=== PATIENT | male | born 1970 | race African-American/Black ===

== ENCOUNTER 2019-11-20 13:46 | Emergency (ER) | payer SELFPAY ==
[~2019-11-20] VITALS: Ht 165.1 cm; Wt 81.6 kg
[2019-11-20 14:28] VITALS: BP 167/98
[2019-11-20] MEDS ORDERED: IBUP-1007 PO (14:49)
--- NOTE | 2019-11-20 14:49 | PHYS DOC ---
Past Medical History Past Medical History: Hypertension Past Surgical History: No Surgical History Alcohol Use: Occasionally Drug Use: Marijuana Adult General Chief Complaint Chief Complaint: SHOULDER INJURY HPI HPI Patient is a 49 year old male] who presents with [left shoulder pain. Patient reports over the last week, he has had some increasing pain in his left shoulder. Reports he was a lot of boxes while at work, after working for the past few days he has had some increased discomfort. States he has not tried taking medications for this, states that he has additional discomfort when he tries to lay on that arm. Patient denies any fever. Denies any chest pain. Reports pain worse when he moves arm. Denies any recent falls. Denies any prior shoulder issues.] Review of Systems Review of Systems Constitutional: Denies fever or chills [] Respiratory: Denies cough or shortness of breath [] Cardiovascular: No additional information not addressed in HPI [] GI: Denies abdominal pain, nausea, vomiting, bloody stools or diarrhea [] : Denies dysuria or hematuria [] Musculoskeletal: Denies back pain complains of pain to left shoulder.[] Integument: Denies rash or skin lesions [] Neurologic: Denies headache, focal weakness or sensory changes [] Endocrine: Denies polyuria or polydipsia [] All other systems were reviewed and found to be within normal limits, except as documented in this note. Allergies Allergies Allergies Coded Allergies Type Severity Reaction Last Updated Verified No Known Drug Allergies 11/20/19 No Physical Exam Physical Exam Constitutional: Well developed, well nourished, no acute distress, non-toxic appearance. [] Neck: Normal range of motion, no tenderness, supple, no stridor. [] Cardiovascular:Heart rate regular rhythm, no murmur [] Lungs & Thorax: Bilateral breath sounds clear to auscultation [] Abdomen: Bowel sounds normal, soft, no tenderness, no masses, no pulsatile masses. [] Skin: Warm, dry, no erythema, no rash. [] Back: No tenderness, no CVA tenderness. [] Extremities: No tenderness, no cyanosis, no clubbing, ROM intact, no edema. Full range of motion to left shoulder, increased discomfort on internal rotation, on thumbs-down movement of right hand.[] Neurologic: Alert and oriented X 3, normal motor function, normal sensory function, no focal deficits noted. [] Psychologic: Affect normal, judgement normal, mood normal. [] Current Patient Data Vital Signs Vital Signs Date Time Temp Pulse Resp B/P (MAP) Pulse Ox O2 Delivery O2 Flow Rate FiO2 11/20/19 14:28 98.6 65 18 167/98 (121) 93 Room Air 98.6 EKG EKG [] Radiology/Procedures Radiology/Procedures [] Course & Med Decision Making Course & Med Decision Making Pertinent Labs and Imaging studies reviewed. (See chart for details) [Discussed findings with patient, without noted signs of fracture or deformity. Full range of motion. It is to be bursal injury due to overuse. Recommend patient to NSAIDs. No imaging necessary today as patient has full range of motion, no deformity noted. Patient to follow up with primary care] Aditya Disclaimer Aditya Disclaimer This electronic medical record was generated, in whole or in part, using a voice recognition dictation system. Departure Departure Impression: Primary Impression: Bursitis Disposition: HOME, SELF-CARE Condition: STABLE Referrals: UNKNOWN PCP NAME (PCP) Patient Instructions: Bursitis Additional Instructions: As we discussed, take ibuprofen 3 times a day, one pill every 8 hours, even if you're not having discomfort. To this for at least next 5 days to help with the discomfort. Try to keep your arm elevated on a pillow when you're sleeping at night. Try to rest her shoulder over the next couple days. He may put an icepack on your shoulder as well. Scripts Ibuprofen (IBUPROFEN) 600 Mg Tablet 600 MG PO TID PRN for INFLAMMATION for 7 Days, #21 TAB Prov: AMISHA GUPTA APRN 11/20/19 Problem Qualifiers Primary Impression: Bursitis Bursitis location: shoulder Laterality: left Qualified Codes: M75.52 - Bursitis of left shoulder AMISHA GUPTA APRN Nov 20, 2019 14:49
== END 2019-11-20 15:05 | disposition home or self-care (01) ==
LOC: ER 13:46
DX: M75.52 Bursitis of left shoulder (principal); I10 Essential (primary) hypertension; F12.90 Cannabis use, unspecified, uncomplicated
CPT/HCPCS: 99282

== ENCOUNTER 2019-12-05 16:07 | Emergency (ER) | payer SELFPAY ==
[~2019-12-05] VITALS: Ht 165.1 cm; Wt 83.1 kg
[~2019-12-05 16:07] MED LIST: IBUP-1007 PO
[2019-12-05 16:27] VITALS: BP 145/95
--- NOTE | 2019-12-05 17:52 | PHYS DOC ---
Past Medical History Past Medical History: Hypertension Past Surgical History: No Surgical History Alcohol Use: Occasionally Drug Use: Marijuana Adult General Chief Complaint Chief Complaint: SHOULDER INJURY HPI HPI Patient is a 49 year old male who presents to the ED today complaining of 10 out of 10 left shoulder pain that has been going on for 2 weeks. Patient reports he works at [employer] and has been lifting heavy boxes up to 70 pounds during his shift. He states the pain is worse at work. He reports he occasionally takes aspirin or ibuprofen for his pain. He reports he was seen in the ED approximately 2 weeks ago for the same complaint. Review of Systems Review of Systems Constitutional: Denies fever or chills [] Musculoskeletal: Reports left shoulder pain Integument: Denies rash or skin lesions [] Neurologic: Denies headache, focal weakness or sensory changes [] All other systems were reviewed and found to be within normal limits, except as documented in this note. Allergies Allergies Allergies Coded Allergies Type Severity Reaction Last Updated Verified No Known Drug Allergies 11/20/19 No Physical Exam Physical Exam Constitutional: Well developed, well nourished, no acute distress, non-toxic appearance. [] Skin: Warm, dry, no erythema, no rash. [] Back: No tenderness, no CVA tenderness. [] Extremities: No tenderness, no cyanosis, no clubbing, ROM intact, no edema. Neurovascular exam is intact to the left upper extremity. Neurologic: Alert and oriented X 3, normal motor function, normal sensory function, no focal deficits noted. [] Psychologic: Affect normal, judgement normal, mood normal. [] Current Patient Data Vital Signs Vital Signs Date Time Temp Pulse Resp B/P (MAP) Pulse Ox O2 Delivery O2 Flow Rate FiO2 12/05/19 16:27 97.9 91 16 145/95 (112) 99 Room Air 97.9 EKG EKG [] Radiology/Procedures Radiology/Procedures [] Course & Med Decision Making Course & Med Decision Making Pertinent Labs and Imaging studies reviewed. (See chart for details) This is a 49-year-old male patient presented to the ED today with left shoulder pain, symptoms began 2 weeks ago, pain associated with his job at [employer] lifting and moving boxes. Patient was seen in the ED 2 weeks ago for the same complaint. Patient met [facility] protocal. D/c Aditya Disclaimer Aditya Disclaimer This electronic medical record was generated, in whole or in part, using a voice recognition dictation system. Departure Departure Impression: Primary Impression: Shoulder pain, left Disposition: 07 AGAINST MEDICAL ADVICE Condition: STABLE Referrals: NO PCP (PCP) Problem Qualifiers Primary Impression: Shoulder pain, left Chronicity: acute Qualified Codes: M25.512 - Pain in left shoulder LETICIAABHIJHON BANKS Dec 05, 2019 17:52
== END 2019-12-05 18:12 | disposition home or self-care (01) ==
LOC: ER 16:07
DX: M25.512 Pain in left shoulder (principal); I10 Essential (primary) hypertension; F12.90 Cannabis use, unspecified, uncomplicated
CPT/HCPCS: 99281